=== PATIENT | female | born 1935 | race Caucasian/White ===

== ENCOUNTER → 2022-02-18 | Outpatient (CLI) | payer MEDICARE, OTHER ==
[~2022-02-18] MED LIST: ALEVE 220MG220 MG PO; AMBIEN 5MG TABLE5 MG PO; BENADRYL25 M2 PO; CALCIUM CARBON650 M2; CELEBREX 1100 MG/CAP PO; EXELON9.5 MG/24 TD; FISH OIL 1000MG1 CAP PO; FLONASEALLERGY NAS; FOSAMAX 70MG TA70 MG PO; HCTZ 25MG TAB25 MG PO; LOMOTIL 0.025 M1 TAB PO; LUNESTA3 MG PO; LYRICA 75MG CAP75 MG PO; MELATONIN5 M1 PO; MULTI VITAMINS1 TAB PO; NORCO 325 MG-51 TAB PO; NORCO 325 MG-7.1 TAB PO; NORVASC 5MG5 MG/TAB PO; OMNICEF 300MG300 MG PO; OSCAL 500 TAB500 MG PO; OYSTER SHELL C500 M4 PO; PAMELOR 10MG10 MG PO; PAXIL 10MG10 MG PO; PAXIL 20MG20 MG PO; PAXIL10 MG/5 ML PO; REQUIP XL6 MG PO; RESTASIS MULTI5.5 ML OU; ROXICODONE 55 MG/TAB PO; SINEMET 25/101 UDTAB PO; SINGULAIR 110 MG/TAB PO; TRIAMCINOLONE A15 GM TP; TRICOR145 MG; TRICOR145 MG PO; TYLENOL 325MG325 MG PO; TYLENOL 500MG500 MG PO; XANAX .25M0.25 MG/TA PO
[2022-02-20 15:24] LABS: ANA SCREEN with REFLEX Negative (Negative)
== END ==
LOC: COL.RAD 14:21
PROVIDERS: Physical Medicine & Rehabilitation Sports Medicine
DX: M51.34 Other intervertebral disc degeneration, thoracic region (principal); M48.54XA Collapsed vertebra, not elsewhere classified, thoracic region, initial encounter for fracture; M43.16 Spondylolisthesis, lumbar region; M46.1 Sacroiliitis, not elsewhere classified; M85.30 Osteitis condensans, unspecified site

== ENCOUNTER → 2022-02-18 | Outpatient (CLI) | payer MEDICARE, OTHER | LOC: MHCPAIN 12:53 | DX: M54.50 Low back pain, unspecified (principal); M16.9 Osteoarthritis of hip, unspecified; Z98.890 Other specified postprocedural states; R29.6 Repeated falls | CPT/HCPCS: G0463 ==

== ENCOUNTER → 2022-07-08 | Outpatient (CLI) | payer MEDICARE, OTHER ==
[~2022-07-08] MED LIST changes: +CYMBALTA 30MG30 MG PO; +FENTANYL 25 MCG TD; +FLEXERIL5 MG PO; +LYRICA 100MG C100 M1 PO; +MELATONIN5 M1 SL; +OYSTERCAL-D 5001 TAB PO
== END ==
LOC: MHCPAIN 14:43
DX: M47.896 Other spondylosis, lumbar region (principal); M54.16 Radiculopathy, lumbar region; M96.1 Postlaminectomy syndrome, not elsewhere classified
CPT/HCPCS: G0463

== ENCOUNTER 2022-08-01 22:21 | Emergency (ER) | payer MEDICARE, OTHER ==
[~2022-08-01] VITALS: Ht 172.7 cm; Wt 81.8 kg
[2022-08-01 22:24] VITALS: TEMP 97.6
[2022-08-02 01:13] LABS: BASO % 0.3 % (0.0-2.0); EOS # 0.2 K/mm3 (0.0-0.7); GRAN # 7.2 K/mm3 (1.4-6.5); GRAN % 73.8 % (42.2-75.2); HEMATOCRIT 47.4 % (37.0-47.0); HEMOGLOBIN 15.1 g/dl (12.5-16.0); LYMPH # 1.7 K/mm3 (1.2-3.4); LYMPH % 17.3 % (20.0-51.0); MEAN CELL VOLUME 87 fl (80.0-100.0); MEAN CORPUSCULAR HEMOGLOBIN 28 pg (27-31); MEAN CORPUSCULAR HGB CONC 32 g/dl (33.0-37.0); MEAN PLATELET VOLUME 11.2 fl (7.4-10.4); MONO # 0.6 K/mm3 (0.1-0.6); MONO % 6.1 % (1.7-9.3); PLATELET COUNT 250 K/mm3 (130-400); RED BLOOD COUNT 5.45 M/mm3 (4.10-5.30); REDCELL DISTRIBUTION WIDTH-CV 16.1 % (11.5-14.5)
[2022-08-02 01:14] LABS: ALBUMIN 3.9 gm/dL (3.4-4.8); ALKALINE PHOSPHATASE 124 U/L (40-150); ANION GAP 12 mmol/L (7-16); AST,SGOT 21 U/L (5-34); BILIRUBIN,TOTAL 0.4 mg/dL (0.2-1.2); BLOOD UREA NITROGEN 24 mg/dL (10-20); CALCIUM 10.2 mg/dL (8.4-10.2); CARBON DIOXIDE 21 mmol/L (23-31); CHLORIDE 105 mmol/L (98-107); CREATININE, serum 0.76 mg/dL (0.57-1.11); GLUCOSE 138 mg/dL (70-99); POTASSIUM 3.7 mmol/L (3.5-4.5); SODIUM 138 mmol/L (136-145); TOTAL PROTEIN 7.8 gm/dL (6.2-8.1)
[2022-08-02 01:15] LABS: ALANINE AMINOTRANSFERASE < 6 U/L (0-55)
[2022-08-02 01:53] LABS: COLLECTION METHOD CLEAN CATCH
[2022-08-02 01:58] LABS: URINE APPEARANCE Clear (CLEAR/HAZY); URINE BLOOD Negative (NEGATIVE); URINE COLOR Yellow (YELLOW); URINE GLUCOSE Negative (NEGATIVE); URINE KETONE Negative (NEGATIVE); URINE NITRATE Positive (NEGATIVE); URINE PROTEIN(semi-quant) Negative (NEGATIVE); URINE UROBILINOGEN 0.2 E.U/dL (0.2-1.0)
[2022-08-02 01:59] LABS: MUCOUS Present (NOT PRESENT); SQUAMOUS EPITHELIAL 0-2 /hpf (0-10); URINE BACTERIA Many /hpf (NONE SEEN)
[2022-08-02 03:40] VITALS: BP 155/95; PULSE 98
== END 2022-08-02 03:40 | disposition short-term general hospital (02) ==
LOC: COL.ER 22:21
PROVIDERS: Nurse Practitioner
DX: S32.029A Unspecified fracture of second lumbar vertebra, initial encounter for closed fracture (principal); S00.83XA Contusion of other part of head, initial encounter; M25.551 Pain in right hip; G89.29 Other chronic pain; Z87.81 Personal history of (healed) traumatic fracture; W01.10XA Fall on same level from slipping, tripping and stumbling with subsequent striking against unspecified object, initial encounter; Y93.01 Activity, walking, marching and hiking; Y92.099 Unspecified place in other non-institutional residence as the place of occurrence of the external cause
CPT/HCPCS: J3010